=== PATIENT | female | born 1955 | race Caucasian/White ===

== ENCOUNTER 2025-02-02 08:36 | Emergency (ER) | payer OTHER ==
[2025-02-02] MEDS ORDERED: Iopamidol 370 76% 100 ML VIAL ONE (09:00)
[2025-02-02 09:36] LABS: Glucose, Urine (Dipstick) Negative (Negative); Leukocyte Negative (Negative); Protein, Urine (Dipstick) Negative (Neg-Trace); Specific Gravity, Urine 1.010 (1.005-1.030)
[2025-02-02 09:36] LABS: #Basophils 0.1 thou/uL (0.0-0.2); #Eosinophils 0.1 thou/uL (0.0-0.7); #Lymphocytes 1.1 thou/uL (1.20-3.40); #Monocytes 0.5 thou/uL (0.11-0.59); #Neutrophils 6.1 thou/uL (1.40-6.50); %Basophils 1.1 % (0.0-1.0); %Eosinophils 0.7 % (0.0-10.0); %Lymphocytes 14.4 % (21.0-51.0); %Monocytes 6.2 % (0.0-10.0); %Neutrophils 77.5 % (42.0-75.0); Hematocrit 48.1 % (36.0-47.0); Hemoglobin 16.7 g/dL (12.0-16.0); Mean Corpuscular Hemoglobin 32.3 pg (27.0-31.0); Mean Corpuscular Volume 92.9 fl (78.0-98.0); Platelet Count 257 10x3/uL (130-400); Red Blood Cell (RBC) Count 5.18 mill/uL (4.20-5.40); White Blood Cell (WBC) Count 7.9 10x3/uL (4.8-10.8)
[2025-02-02 09:50] LABS: ALT (SGPT) 45 U/L (Less than 34); AST (SGOT) 59 U/L (11-34); Albumin 4.9 g/dL (3.1-4.5); Alkaline Phosphatase 88 U/L (40-110); Anion Gap 14 mmol/L (10-20); BUN (Urea Nitrogen) 11 mg/dL (9.8-20.1); Bilirubin, Total 0.6 mg/dL (0.3-1.2); Calc. Creatinine Clearance 0 mL/min (70-130); Calcium 10.0 mg/dL (7.8-10.44); Carbon Dioxide 26 mmol/L (23-31); Chloride 100 mmol/L (98-107); Globulin 2.9 g/dL (2.4-3.5); Glucose 111 mg/dL (80-115); Potassium 4.4 mmol/L (3.5-5.1); Sodium 136 mmol/L (136-145)
[2025-02-02 09:57] LABS: Bacteria/HPF 1+ HPF (None Seen); CAUTI Indications for Culture Pelvic or flank pain; WBC/HPF 0-3 HPF (0-3)
[2025-02-02 09:58] LABS: Urine Culture Reflex No No
[2025-02-02] MEDS ORDERED: Ketorolac Tromethamine 30 MG (1 mL) VIAL ONE (10:15)
== END 2025-02-02 12:25 | disposition home or self-care (01) ==
LOC: NAV ERS 08:36
DX: K59.00 Constipation, unspecified (principal); I10 Essential (primary) hypertension; E78.5 Hyperlipidemia, unspecified; F17.210 Nicotine dependence, cigarettes, uncomplicated; Z79.899 Other long term (current) drug therapy
CPT/HCPCS: 74177; 80053; 81001; 85025; 96374; J1885; Q9967

== ENCOUNTER 2025-04-21 11:15 | Emergency (ER) | payer OTHER | END 2025-04-21 11:50 | disposition home or self-care (01) | LOC: NAV ERS 11:15 | DX: J01.10 Acute frontal sinusitis, unspecified (principal); B34.9 Viral infection, unspecified; I10 Essential (primary) hypertension; E78.5 Hyperlipidemia, unspecified; F17.210 Nicotine dependence, cigarettes, uncomplicated; Z79.899 Other long term (current) drug therapy | CPT/HCPCS: 99283 ==

== ENCOUNTER 2025-06-06 15:48 | Emergency (ER) | payer OTHER ==
[2025-06-06] MEDS ORDERED: Benzonatate 100 MG CAP ONE (17:00)
[2025-06-06] MEDS ORDERED: Oseltamivir 75 MG CAP ONE (17:00)
== END 2025-06-06 17:04 | disposition home or self-care (01) ==
LOC: NAV ERS 15:48
DX: J10.1 Influenza due to other identified influenza virus with other respiratory manifestations (principal); I10 Essential (primary) hypertension; E78.5 Hyperlipidemia, unspecified; F17.210 Nicotine dependence, cigarettes, uncomplicated; Z79.899 Other long term (current) drug therapy
CPT/HCPCS: 71046; 87428; 99406